=== PATIENT | female | born 1975 | race Hispanic/Latino ===

== ENCOUNTER → 2017-08-12 | Outpatient (CLI) | payer OTHER ==
[~2017-08-12] MED LIST: FLC1T PO; IBP600T1 PO; OXYC-12 PO; PREN1TAB39 PO
--- NOTE | 2017-08-13 17:43 | Diagnostic Imaging Report ---
Bilateral screening mammogram 2D views with tomosynthesis. The current study was also evaluated with a Computer Aided Detection (CAD) system. INDICATION: Screening. No current complaints stated on the questionnaire. COMPARISON: None. This is a baseline study. FINDINGS: The breasts are composed of heterogeneously dense parenchyma which may decrease mammographic sensitivity. Asymmetry along the lateral aspect of the right breast is noted and with tomographic evaluation appears to relate to summation artifact of parenchyma and overlying tortuous vessels. No suspicious mass, architectural distortion, or suspicious calcification seen. IMPRESSION: Dense breasts which may decrease mammographic sensitivity. No definite mass is seen. Routine self examination, and clinical and mammographic screening annually is recommended. ACR BI-RADS Category 2: Benign findings. Result letter will be mailed to the patient. Note: At least 10% of breast cancer is not imaged by mammography. Dictated on workstation # [id number]
== END ==
LOC: RAD 11:21
PROVIDERS: ATTEND Family Medicine
DX: Z12.31 Encounter for screening mammogram for malignant neoplasm of breast (principal)
CPT/HCPCS: 77067

== ENCOUNTER → 2019-03-17 | Outpatient (CLI) | payer BC ==
--- NOTE | 2019-03-17 16:24 | Diagnostic Imaging Report ---
PROCEDURE: US Non-ob pelvis comp/trans. TECHNIQUE: Multiple real-time grayscale images were obtained of the pelvis in various projections endovaginally. Transabdominal imaging was also performed. INDICATION: Uterine enlargement. COMPARISON: None. FINDINGS: Uterus is anteverted. There is large heterogeneous mass within the uterine myometrium that measures 7.4 x 6.7 x 7.5 cm within the central uterus. Color flow images show presence of internal vascularity. As a whole, the uterus measures 8.7 x 6.6 x 9 cm. Separate endometrial stripe cannot be adequately identified. Visualized portions of the cervix show small nabothian cysts. The ovaries cannot be well visualized on either side. No adnexal masses or free fluid seen. IMPRESSION: 1. Large heterogeneous mass within the central uterus. Findings could be on the basis of large uterine fibroid. Endometrial mass however cannot be entirely excluded. Dictated by: Dictated on workstation # [id number]
== END ==
LOC: RAD 15:25
PROVIDERS: ATTEND Obstetrics & Gynecology
DX: N85.2 Hypertrophy of uterus (principal); N89.8 Other specified noninflammatory disorders of vagina
CPT/HCPCS: 76830; 76856

== ENCOUNTER 2019-04-04 08:56 | Outpatient (CLI) | payer BC ==
[~2019-04-04] VITALS: Ht 165.1 cm; Wt 81.4 kg
[2019-04-04] MEDS ORDERED: METF750T2 PO (09:04)
[2019-04-04 09:07] VITALS: BP 115/78
[2019-04-04 09:49] LABS: BASOPHILS % (AUTO) 1 % (0-10); EOSINOPHILS # (AUTO) 0.1 10^3/uL (0.0-0.3); EOSINOPHILS % (AUTO) 3 % (0-10); HEMATOCRIT 35 % (35-52); HEMOGLOBIN 11.8 G/DL (11.5-16.0); LYMPHOCYTES % (AUTO) 24 % (12-44); MEAN CORPUSCULAR HEMOGLOBIN 26 PG (25-34); MEAN CORPUSCULAR HGB CONC 33 G/DL (32-36); MEAN CORPUSCULAR VOLUME 77 FL (80-99); MEAN PLATELET VOLUME 10.3 FL (7.4-10.4); MONOCYTES # (AUTO) 0.3 X 10^3 (0.0-1.0); MONOCYTES % (AUTO) 8 % (0-12); NEUTROPHILS # (AUTO) 2.6 X 10^3 (1.8-7.8); NEUTROPHILS % (AUTO) 64 % (42-75); PLATELET COUNT 328 10^3/uL (130-400); RED CELL DISTRIBUTION WIDTH 13.3 % (10.0-14.5)
== END 2019-04-04 11:30 | disposition home or self-care (01) ==
LOC: PREOP 08:56
PROVIDERS: ATTEND Obstetrics & Gynecology
DX: Z01.812 Encounter for preprocedural laboratory examination (principal); Z11.2 Encounter for screening for other bacterial diseases; N85.9 Noninflammatory disorder of uterus, unspecified
CPT/HCPCS: 36415; 85025; 86850; 86900; 86901; 87081

== ENCOUNTER 2019-04-13 08:20 | Day surgery (SDC) | payer BC ==
[2019-04-13] VITALS (10 sets, daily range): BP systolic 115–146; BP diastolic 64–85
[~2019-04-13] VITALS: Ht 165.1 cm; Wt 81.4 kg
[~2019-04-13 08:20] MED LIST changes: +METF750T2 PO
[2019-04-13] MEDS ORDERED: ceFAZolin INJECTION 1,000 MG in WATER (STERILE) FOR INJECTION 10 ML IV ONE (08:30)
[2019-04-13] MEDS ORDERED: metroNIDAZOLE 500MG/100ML IVPB 100 ML IV ONE (08:30)
--- OUTSIDE RECORDS SUMMARY | 2019-04-13 08:31 | XMS REPORT | Continuity of Care Document ---
Author Organization Unknown Address Unknown Allergies Active Description Code Type Severity Reaction Onset Reported/Identified Relationship to Patient Clinical Status Yes No Known Drug Allergies [id number] Drug Allergy Unknown N/A 04/04/2019 Medications There is no data. 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 03/14/2019 MARY, NICOLE R DRAFTER ELECTRICAL Ot 397.0 TRICUSPID VALVE DISEASE 03/14/2019 MARY, NICOLE R DRAFTER ELECTRICAL Ot 785.2 CARDIAC MURMURS NEC 03/14/2019 ELGIN TOVAR MD R Ot Z12.31 ENCNTR SCREEN MAMMOGRAM FOR MALIGNANT NE 03/14/2019 MARY NICOLE R DRAFTER ELECTRICAL Ot 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 03/14/2019 MARY, NICOLE R DRAFTER ELECTRICAL Ot 397.0 TRICUSPID VALVE DISEASE 03/14/2019 MARY, NICOLE R DRAFTER ELECTRICAL Ot 785.2 CARDIAC MURMURS NEC 03/14/2019 ELGIN TOVAR MD R Ot Z12.31 ENCNTR SCREEN MAMMOGRAM FOR MALIGNANT NE 03/17/2019 MARY NICOLE R DRAFTER ELECTRICAL Ot 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 03/17/2019 MARY NICOLE R DRAFTER ELECTRICAL Ot 397.0 TRICUSPID VALVE DISEASE 03/17/2019 MARY NICOLE R DRAFTER ELECTRICAL Ot 785.2 CARDIAC MURMURS NEC 03/17/2019 GUY KIMBROUGH, ELGIN R Ot Z12.31 ENCNTR SCREEN MAMMOGRAM FOR MALIGNANT NE 03/23/2019 FENECH DO, ATIF S Ot 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 03/23/2019 FENECH DO, ATIF S Ot N89.8 OTHER SPECIFIED NONINFLAMMATORY DISORDER 03/28/2019 MARY, NICOLE R DRAFTER ELECTRICAL Ot 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 03/28/2019 MARY, NICOLE R DRAFTER ELECTRICAL Ot 397.0 TRICUSPID VALVE DISEASE 03/28/2019 MARY, NICOLE R DRAFTER ELECTRICAL Ot 785.2 CARDIAC MURMURS NEC 03/28/2019 GUY KIMBROUGH, ELGIN R Ot Z12.31 ENCNTR SCREEN MAMMOGRAM FOR MALIGNANT NE 03/28/2019 FENECH DO, ATIF S Ot 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 03/28/2019 FENECH DO, ATIF S Ot N89.8 OTHER SPECIFIED NONINFLAMMATORY DISORDER 04/04/2019 MARY, NICOLE R DRAFTER ELECTRICAL Ot 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 04/04/2019 MARY, NICOLE R DRAFTER ELECTRICAL Ot 397.0 TRICUSPID VALVE DISEASE 04/04/2019 MARY, NICOLE R DRAFTER ELECTRICAL Ot 785.2 CARDIAC MURMURS NEC 04/04/2019 GUY KIMBROUGH, ELGIN Galvan Ot Z12.31 ENCNTR SCREEN MAMMOGRAM FOR MALIGNANT NE 04/04/2019 FENECH DO, ATIF S Ot 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 Results Test Result Range Methicillin resistant Staphylococcus aureus (MRSA) screening culture - 04/04/19 09:15 Methicillin resistant Staphylococcus aureus (MRSA) screening culture NEG NRG Complete blood count (CBC) with automated white blood cell (WBC) differential - 04/04/19 09:20 Blood leukocytes automated count (number/volume) 4.0 10*3/uL 4.3-11.0 Blood erythrocytes automated count (number/volume) 4.56 10*6/uL 4.35-5.85 Venous blood hemoglobin measurement (mass/volume) 11.8 g/dL 11.5-16.0 Blood hematocrit (volume fraction) 35 % 35-52 Automated erythrocyte mean corpuscular volume 77 [foz_us] 80-99 Automated erythrocyte mean corpuscular hemoglobin (mass per erythrocyte) 26 pg 25-34 Automated erythrocyte mean corpuscular hemoglobin concentration measurement (mass/volume) 33 g/dL 32-36 Automated erythrocyte distribution width ratio 13.3 % 10.0- 14.5 Automated blood platelet count (count/volume) 328 10*3/uL 130-400 Automated blood platelet mean volume measurement 10.3 [foz_us] 7.4-10.4 Automated blood neutrophils/100 leukocytes 64 % 42-75 Automated blood lymphocytes/100 leukocytes 24 % 12-44 Blood monocytes/100 leukocytes 8 % 0-12 Automated blood eosinophils/100 leukocytes 3 % 0-10 Automated blood basophils/100 leukocytes 1 % 0-10 Blood neutrophils automated count (number/volume) 2.6 10*3 1.8-7.8 Blood lymphocytes automated count (number/volume) 1.0 10*3 1.0-4.0 Blood monocytes automated count (number/volume) 0.3 10*3 0.0- 1.0 Automated eosinophil count 0.1 10*3/uL 0.0-0.3 Automated blood basophil count (count/volume) 0.0 10*3/uL 0.0-0.1 Blood type T Indirect antibody screen panel - 04/04/19 09:20 ABO+Rh group OP NRG Blood group antibody screen NEGATIVE NRG Encounters ACCT No. Visit Date/Time Discharge Status Pt. Type Provider Facility Loc./Unit Complaint [id number] 04/04/2019 08:56:00 04/04/2019 11:30:00 DIS Outpatient ATIF SCOTT DO [facility] PREOP INTRAUTERINE MASS [id number] 03/17/2019 15:25:00 03/17/2019 23:59:59 CLS Outpatient ATIF SCOTT DO [facility] RAD UTERINE ENLARGEMENT [id number] 08/12/2017 11:21:00 08/12/2017 23:59:59 CLS Outpatient ELGIN TOVAR MD [facility] RAD SCREENING [id number] 02/09/2014 13:19:00 02/09/2014 23:59:59 CLS Outpatient NICOLE HERNANDEZ APRN [facility] CARD MURMUR [id number] 04/13/2019 09:15:00 PEN Preadmit ATIF SCOTT DO [facility] SDC INTRAUTERINE MASS
[2019-04-13] MEDS: LACTATED RINGERS 1,000 ML IV PRN ×4 (08:35→12:47)
[2019-04-13] MEDS ORDERED: CATHETER FLUSH 10 ML SYR IV PRN (08:45)
--- NOTE | 2019-04-13 09:05 | Progress Note-Pre Operative ---
Pre-Operative Progress Note H&P Reviewed The H&P was reviewed, patient examined and no changes noted. Date Seen by Provider: Apr 13, 2019 Time Seen by Provider: 09:00 Date H&P Reviewed: Apr 13, 2019 Time H&P Reviewed: 09:00 Pre-Operative Diagnosis: Intrauterine mass ATIF SCOTT DO Apr 13, 2019 09:05
[2019-04-13] MEDS ORDERED: ROCURONIUM 10 MG/ML 5 ML SYRINGE IV ONE (09:37)
[2019-04-13] MEDS ORDERED: proPOfol 200 MG/20 ML (DIPRIVAN) VIAL IV ONE (09:37)
[2019-04-13] MEDS ORDERED: LIDOCAINE PF 2% 5 ML (XYLOCAINE) VIAL ONE (09:37)
[2019-04-13] MEDS ORDERED: ONDANSETRON 4 MG/2 ML (SDV) Z0FRAN ONE ×2 (09:37→15:42)
[2019-04-13] MEDS ORDERED: MIDAZOLAM 2 MG/2 ML (VERSED) VIAL ONE (09:37)
[2019-04-13] MEDS ORDERED: fentaNYL INJECTION 100 MCG/2 ML AMP ONE (09:38)
[2019-04-13] MEDS ORDERED: BUPIVACAINE 0.25% 30 ML (SENSORCAINE) VIAL ONE (09:43)
[2019-04-13] MEDS ORDERED: LACTATED RINGERS 1,000 ML IV SCH (10:04)
--- NOTE | 2019-04-13 10:08 | Discharge Inst-Women's Service ---
Discharge Inst-Women's Serv Depart Medication/Instructions New, Converted or Re-Newed RX: RX on Chart Consults/Follow Up Additional Follow Up: Yes Orders/Referrals Dr. Ross in 7-10 days and in 8 weeks Activity Activity: Activity as Tolerated Driving Instructions: No Driving for 1 Week NO SMOKING: NO SMOKING Nothing Inside Vagina: No Douching, No [place], No Tampons Diet Discharge Diet: No Restrictions Symptoms to Report to : Bleeding Excessive, Pain Increased, Fever Over 101 Degrees F, Vaginal Bleeding Increase, Questions/Concerns For Any Problems or Questions: Contact Your Physician Skin/Wound Care Infection Signs and Symptoms: Increased Redness, Foul Odor of Wound, Increased Drainage, Skin Itchy or Has a Rash, Increased Swelling, Temperature Above 101 F Operative Area Clean and Dry: Keep Incision Clean/Dry Stitches/Joy/Dermabond: Dermabond, Care of Stitches Bathing Instructions: ATIF Vicente DO Apr 13, 2019 10:08
[2019-04-13] MEDS ORDERED: DOCU100C37 PO (10:12)
[2019-04-13] MEDS ORDERED: SIME80TA16 PO (10:12)
[2019-04-13] MEDS ORDERED: HYDR-34 PO (10:12)
[2019-04-13] MEDS ORDERED: IBUP-844 PO (10:12)
[2019-04-13] MEDS ORDERED: CHLORASEPTIC LOZENGE MM PRN (10:15)
[2019-04-13] MEDS ORDERED: HYDROcodone/APAP 7.5 MG/325 MG (LORTAB, LORCET PLUS) TABLET PO PRN (10:15)
[2019-04-13] MEDS ORDERED: SIMETHICONE 80 MG (MYLICON) CHEW PO PRN (10:15)
[2019-04-13] MEDS ORDERED: ANTACID SUSP 30 ML UDC (MYLANTA) PO PRN (10:15)
[2019-04-13] MEDS ORDERED: DOCUSATE SODIUM 100 MG (COLACE) CAP PO PRN (10:15)
[2019-04-13] MEDS ORDERED: ZOLPIDEM 5 MG (AMBIEN) TAB PO PRN (10:15)
[2019-04-13] MEDS ORDERED: SEVOFLURANE (ULTANE) 15 ML INHAL SOLN ONE ×7 (10:40→12:53)
[2019-04-13] MEDS ORDERED: morphine INJ 10 MG/ML 1ML (SYR OR VIAL) ONE ×2 (11:32→13:01)
[2019-04-13] MEDS ORDERED: GLYCOPYRROLATE 0.2 MG/ML (ROBINUL) 2 ML VIAL ONE (12:53)
[2019-04-13] MEDS ORDERED: NEOSTIGMINE 1 MG/ML 5 ML SYRINGE ONE (12:53)
[2019-04-13] MEDS ORDERED: PROMETHAZINE INJ 25 MG/ML (PHENERGAN) AMP IVP ONE (13:00)
[2019-04-13] MEDS ORDERED: MEPERIDINE (DEMEROL) INJ 50 MG/ML IVP ONE (13:00)
[2019-04-13] MEDS ORDERED: morphine INJ 10 MG/ML 1ML (SYR OR VIAL) IVP ONE (13:00)
[2019-04-13] MEDS ORDERED: ONDANSETRON 4 MG/2 ML (SDV) Z0FRAN IVP PRN (13:00)
[2019-04-13] MEDS ORDERED: KETOROLAC 30 MG/ML VIAL ONE (13:21)
[2019-04-13] MEDS: KETOROLAC 30 MG/ML VIAL IV PRN ×2 (13:30→21:07)
--- NOTE | 2019-04-13 13:50 | NUR ---
pt transferred to room 302 via bed with RUBBER TILE FLOOR LAYER's @ side. report received CHARLI Rogel. care assumed.
--- NOTE | 2019-04-13 13:57 | NUR ---
initial shift assessment completed, see interventions for further. lapsites x3, D/I. Band-Aids covering. lombardi to DD with clear, yellow urine noted in chamber. v-pad in place. IV site patent, intact. SCD's to LE's. family members @ side. call light within reach.
[2019-04-13] MEDS ORDERED: CHLORASEPTIC LOZENGE MM ONE (15:32)
--- NOTE | 2019-04-13 15:40 | NUR ---
lombardi catheter dc'd. 375cc urine noted. pt voices c/o's nausea and "dizziness". eyes remained closed. daughter @ side to translate. cool wash cloth applied to forehead. emesis basin given.
[2019-04-13] MEDS: ONDANSETRON 4 MG/2 ML (SDV) Z0FRAN IV PRN ×2 (15:50→19:24)
--- NOTE | 2019-04-13 15:50 | NUR ---
Zofran 4mg IV given. will cont to monitor.
--- NOTE | 2019-04-13 16:30 | NUR ---
pt resting with eyes closed. no sx's of distress noted.
--- NOTE | 2019-04-13 19:20 | OPERATIVE REPORT ---
DATE OF SERVICE: 04/13/2019 PREOPERATIVE DIAGNOSIS: A 43-year-old female with intrauterine mass. POSTOPERATIVE DIAGNOSIS: A 43-year-old female with intrauterine mass. PROCEDURE PERFORMED: Robotic-assisted total laparoscopic hysterectomy with bilateral salpingectomy weighing greater than 900 grams. SURGEON: Adrian Scott DO. ANESTHESIA: General endotracheal. ESTIMATED BLOOD LOSS: 50 mL. URINE OUTPUT: 100 mL, clear at the end of the procedure. FLUIDS: 2800 mL lactated Ringer's solution. FINDINGS: A bulky enlarged and hyperemic-appearing uterus with grossly normal-appearing bilateral ovaries and fallopian tubes. SPECIMENS SENT: Uterus, bilateral fallopian tubes. INDICATIONS FOR PROCEDURE: This 43-year-old was a consultation to me from Dr. Schmid at the [facility] for finding of a large intrauterine mass on pelvic ultrasound. This was done due to the irregularity of her periods as well as pelvic pain and discomfort associated with her periods. When I saw the patient in the office, I reviewed the ultrasound with the patient in which it did appear to be a fibroid tumor. However, we did discuss the possibility of malignancy. Due to the size of this, I have discussed the potential for laparotomy. However, we would try to approach this minimally invasive. The risks of the procedure were discussed with the patient in detail including risks of bleeding, infection, damage to surrounding structures including but not limited to bowel, bladder, ureter, kidneys, possible need for reoperation, postoperative complication, postoperative recovery timeframe, possible need for blood transfusion, risk and even . After everything was discussed with the patient, the consent was reviewed in detail. The consent was then obtained, and the patient was taken to the operating room. OPERATIVE REPORT IN DETAIL: Once in the operating room, general anesthesia was found to be adequate, placed in dorsal lithotomy position, prepped and draped in normal sterile fashion. Timeout was performed. Weighted speculum was inserted in the patient's vagina. Right angle retractor was used to visualize the cervix, which was grasped at 12 o'clock position using a long Allis clamp and #0 Vicryl suture was placed in the anterior lip of the cervix and the Allis clamp was then removed. The suture was then used as my retraction point. I then gently dilated the cervix using Hegar dilators and sounded the depths to be 10 cm. I selected a 10 cm Faith uterine manipulator tip and a 4 cm colpotomy ring advancing into the uterine cavity deploying the balloon and advanced the colpotomy ring around the vaginal fornix. Once this was in place, I removed all the other instruments from the patient's vagina. I performed a change of gloves. I turned my attention to the abdomen where infraumbilically I infiltrated this area using 0.25% Marcaine. I made an 8 mm incision with the knife and directed the Veress needle through the incision until the intraperitoneal placement was confirmed using a saline drop test. An opening pressure of 4 mmHg was noted. I proceeded to a maximum pressure of 15 mmHg, at which point I removed the Veress needle and introduced an 8 mm blunt da Mendy camera trocar. Once this was in place, I am able to identify normal peritoneal findings as well as no evidence of damage upon entry. I then had the patient placed in steep Trendelenburg and I am able to visualize all my pelvic anatomy findings as described above. I placed two lateral trocars that were both 8 mm trocars, approximately 8 cm lateral to my supraumbilical trocar. Once these are in place, I bring in the da Mendy robot and docked in the appropriate fashion placing da Mendy vessel sealer in the left hand and monopolar michael in the right hand. I took my place at the operative console and performed the following dissection bilaterally. Starting at the uteroovarian ligament, I bipolar cauterized and transected using the vessel sealer. I then created a window in the mesosalpinx with monopolar michael and took this laterally down the mesosalpinx cauterizing and transecting the fallopian tube away from the mesosalpinx from its surrounding blood supply. I then grasped the round ligament bipolar cauterized and transected using the vessel sealer. I then grasped the anterior broad ligament, bipolar cauterized and transected this using the vessel sealer down to the level of the lower uterine segment, at which point I the anterior and posterior leaflets of the broad ligament. The anterior leaflet was taken around the anterior vaginal fornix. The posterior leaflet was taken around the posterior vaginal fornix. This allows me to skeletonize the uterine vessels laterally, which I bipolar cauterized and transected using the vessel sealer. I then created a colpotomy in the 12 o'clock position using the monopolar michael and took this circumferentially around the vaginal fornix amputating the cervix away from the vagina. The entire specimen is then removed slowly through the vagina and due to its size, it has to be manipulated and rotated to remove it; however, it is eventually removed using tenaculum clamps. During the process of doing so, there was a 4-5 cm posterior vaginal wall laceration that occurred as well as the separation of the vaginal cuff at the 6 o'clock position. I then proceeded with closing the vaginal cuff in the lateral vaginal apices, I used 2-0 Vicryl suture in a [id number] fashion, colposuspending to the uterosacral ligaments. The remainder of the vaginal cuff was closed using a 2-0 V-Loc in a running fashion. The extension was then reapproximated down the midline at 6 o'clock using 2-0 Vicryl suture in a running fashion, after which there was no active bleeding noted from any of my dissection planes. I then undocked the da Mendy robot and proceeded with the remainder of the case laparoscopically. I copiously irrigated the pelvis using normal saline. Once again, there was no active bleeding noted from any of my dissection planes. I placed FloSeal hemostatic agent over all my planes of dissection to ensure excellent postoperative hemostasis and take the patient out of steep Trendelenburg. I then released insufflation after removing the lateral trocars under direct visualization of the laparoscope. The supraumbilical trocar was left in place to introduce 10 mL of 0.25% Marcaine that released the remaining insufflation. Once the trocars were removed, the skin was reapproximated using 4-0 Monocryl running interrupted subcuticular stitches. Dermabond was applied to the incision and Band-Aids were placed over those incisions as well. The posterior vaginal wall laceration is then approached vaginally and repaired using #0 Vicryl suture in a running locked fashion. There was no active bleeding noted from it as well after the repair was done, the patient tolerated the procedure well and was sent to recovery in stable condition. Lap and sponge counts were correct at the end of the procedure, instrument counts were correct as well. Wallis catheter was left in place. Two grams of Ancef and 500 mg of Flagyl were given preoperatively for infection prophylaxis. Job ID: [id number] DocumentID: [id number] Dictated Date: 04/13/2019 13:17:33 Food Supervisor Date: 04/13/2019 19:19:22 Dictated By: ADRIAN SCOTT DO
--- NOTE | 2019-04-13 19:20 | NUR ---
report given to next shift.
--- NOTE | 2019-04-13 19:24 | NUR ---
Pt sat up to attempt ambulation to bathroom, becomes dizzy and vomits scant emesis. Zofran admin.
--- NOTE | 2019-04-13 21:07 | NUR ---
Jase admin on schedule, pt reports, pain, pt scheduled to attempt to void at 0, poc reviewed for pain medicine to have time to work, if narcotics were needed, pt would need to eat first, understanding voiced, attempting to eat chicken nuggets and fruit at this time.
--- NOTE | 2019-04-13 21:30 | NUR ---
Pt eating, will ring call light when finished to attempt to void.
--- NOTE | 2019-04-13 21:55 | NUR ---
Pt amb to bathroom with standby assist per dewayne rincon. 700ml light eve urine noted in hat. no ss distress noted pt assisted standby back to bed with scds on. SO refugioamains at bedside. Will cont to monitor.
[2019-04-14 00:15] VITALS: BP 119/60
[2019-04-14] MEDS ORDERED: IBUPROFEN 600 MG (MOTRIN) TAB PO PRN (02:45)
[2019-04-14] MEDS ORDERED: KETOROLAC 30 MG/ML VIAL ONE (03:14)
[2019-04-14 03:21] VITALS: BP 112/68
[2019-04-14] MEDS: KETOROLAC 30 MG/ML VIAL IV PRN (03:21)
[2019-04-14 07:31] VITALS: BP 115/61
--- NOTE | 2019-04-14 07:40 | NUR ---
THIS RN CALLED TO ROOM, REQUESTING SOMETHING FOR PAIN, RATING 8/10. VS OBTAINED. MEDS GIVEN; SEE EMAR FOR FURTHER. INITIAL SHIFT ASSESSMENT COMPLETED; SEE INTERVENTION FOR FURTHER. SCDS ON CALVES BILATERALLY. FAMILY AT THE BEDSIDE. FRESH ICE WATER PROVIDED. SHOWER SET UP. NO FURTHER NEEDS VOICED AT THIS TIME.
--- NOTE | 2019-04-14 09:10 | NUR ---
DR. SCOTT TO PT'S BEDSIDE BUT VOICES THAT PT IS UP IN THE BATHROOM.
--- NOTE | 2019-04-14 09:24 | NUR ---
DR. SCOTT BACK TO PT'S BEDSIDE.
--- NOTE | 2019-04-14 10:56 | NUR ---
DISCHARGE PAPERS PROVIDED AND REVIEWED WITH PT VIA LANGUAGE LINE, PT VERBALIZES UNDERSTANDING AND DENIES ANY QUESTIONS AT THIS TIME. S/O AND FAMILY AT THE BEDSIDE. PAPER SIGNED. RX'S AND FOLLOW UP APPOINTMENT CARDS ALSO PROVIDED AND PLACED INTO DISCHARGE FOLDER.
--- NOTE | 2019-04-14 11:04 | NUR ---
PT DISCHARGED FROM -302 TO PERSONAL AUTO VIA W/C IN STABLE CONDITION ACC BY FAMILY AND THIS RN.
--- NOTE | 2019-04-14 14:13 | Anesthesia-General Post-Op ---
General Patient Condition Mental Status/LOC: Same as Preop Cardiovascular: Satisfactory Nausea/Vomiting: Absent Respiratory: Satisfactory Pain: Controlled Complications: Absent Post Op Complications Complications None Follow Up Care/Instructions Patient Instructions None needed. Anesthesia/Patient Condition Patient Condition Patient was seen this morning and she was doing well, C/O minimal pain which is to be expected, stable vital signs, no apparent adverse anesthesia problems. CHACORTA THOMAS DO Apr 14, 2019 14:13
== END 2019-04-14 11:04 | disposition home or self-care (01) ==
LOC: SDC 08:20 → LDRP 13:50 → SDC 04-14 11:04
PROVIDERS: ATTEND Obstetrics & Gynecology
DX: N93.8 Other specified abnormal uterine and vaginal bleeding (principal); D25.1 Intramural leiomyoma of uterus; N72 Inflammatory disease of cervix uteri; E11.9 Type 2 diabetes mellitus without complications; Z79.84 Long term (current) use of oral hypoglycemic drugs
CPT/HCPCS: 82962; 84703; 86850; 86900; 86901; 88307; 94664

== ENCOUNTER → 2019-10-11 | Outpatient (CLI) | payer BC ==
[~2019-10-11] MED LIST changes: +DOCU100C37 PO; +HOLD METFORMIN - RECEIVED CONTRAST 20 ML VIAL IV SCH; +HYDR-34 PO; +IBUP-844 PO; +IOHEXOL 350 MG/ML 100 ML (OMNIPAQUE 350) VIAL IV ONE; +NS 100 ML (IVPB) BAG IV ONE; +SIME80TA16 PO
--- NOTE | 2019-10-11 13:37 | Diagnostic Imaging Report ---
PROCEDURE: CT abdomen and pelvis with and without contrast. TECHNIQUE: Precontrast acquisitions were acquired through the abdomen and pelvis. Multiple contiguous axial images were obtained through the abdomen and pelvis after the administration of intravenous contrast. Auto Exposure Controls were utilized during the CT exam to meet ALARA standards for radiation dose reduction. INDICATION: Pain associated with defecation. FINDINGS: There does appear to be mild low-density throughout the liver without evidence of focal hepatic, gallbladder, pancreatic or splenic abnormality. Kidneys and left adrenal gland are also unremarkable in appearance. There is an approximately 8 cm in diameter cystic focus which appears to arise from the right adrenal gland with mild peripheral calcification. There is no evidence of enhancement within this lesion. There is no free fluid in the abdomen or pelvis. No localized inflammation is identified. Uterus is not seen and is likely surgically absent. Prominent cysts are seen bilaterally in the adnexal regions measuring up to approximately 5.1 cm on the left and 4.3 cm on the right. These also demonstrate no significant contrast enhancement. Partially opacified urinary bladder is unremarkable. IMPRESSION: Mildly complicated dominant cysts involving the right adrenal gland with peripheral calcifications. Clinical correlation with possible previous adrenal gland hemorrhage would be useful. This could be further assessed on short-term ultrasound follow-up in 3-4 months. Bilateral adnexal cysts also demonstrate no internal enhancement or nodularity although clinical correlation would be of use. This could also be assessed with follow-up ultrasonography in 3-4 months. This could potentially relate to patient's symptoms and if warranted, laparoscopy may be of value for assessment and treatment. Dictated by: Dictated on workstation # [id number]
== END ==
LOC: RAD 12:43
PROVIDERS: ATTEND Obstetrics & Gynecology
DX: E27.8 Other specified disorders of adrenal gland (principal); N83.8 Other noninflammatory disorders of ovary, fallopian tube and broad ligament; R19.8 Other specified symptoms and signs involving the digestive system and abdomen; R19.4 Change in bowel habit
CPT/HCPCS: 74178

== ENCOUNTER → 2021-12-19 | Outpatient (CLI) | payer BC ==
[~2021-12-19] MED LIST changes: -HOLD METFORMIN - RECEIVED CONTRAST 20 ML VIAL IV SCH; -IOHEXOL 350 MG/ML 100 ML (OMNIPAQUE 350) VIAL IV ONE; -METF750T2 PO; +METF750T45 PO; -NS 100 ML (IVPB) BAG IV ONE
--- NOTE | 2021-12-19 11:47 | Diagnostic Imaging Report ---
Digital mammogram INDICATION: Bilateral screening This study was compared to the prior exam of 08/12/2017. At this time there are no current complaints. The current study was also evaluated with a Computer Aided Detection (CAD) system. FINDINGS: The fibroglandular tissue in both breasts is heterogeneously dense. This does limit the sensitivity of this exam. Overall, there does not appear to have been any significant change when compared to the prior study. No primary or secondary sign of malignancy is noted. IMPRESSION: 1. There is no radiographic evidence for malignancy. 2. The patient should have her annual bilateral screening mammogram on schedule in December 2022. ACR category 1 ACR BI-RADS Category 1: Negative. Result letter will be mailed to the patient. Note: At least 10% of breast cancer is not imaged by mammography. Dictated by: Dictated on workstation # [id number]
== END ==
LOC: RAD 09:37
PROVIDERS: ATTEND Nurse Practitioner Family
DX: Z12.31 Encounter for screening mammogram for malignant neoplasm of breast (principal); Z00.01 Encounter for general adult medical examination with abnormal findings; S29.012A Strain of muscle and tendon of back wall of thorax, initial encounter; E13.9 Other specified diabetes mellitus without complications; M62.838 Other muscle spasm; X58.XXXA Exposure to other specified factors, initial encounter
CPT/HCPCS: 77063; 77067